=== PATIENT | male | born 1955 ===

== ENCOUNTER 2025-07-28 11:06 | Outpatient (AMB) | payer OTHER, SELFPAY ==
[2025-07-28 11:14] VITALS: BMI 27.4
--- NOTE | 2025-07-28 11:14 | A.PHYSOV ---
Vital Signs 07/28/25 11:14 Height 5 ft 8 in Weight 180 lb BMI 27.4 Intake Visit Reasons: eval for back injection Intake Note: Patient is a 70 year old male here today for a re-evaluation. Patient is having neck pain and would like to discuss another injection. 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 The patient has a history of pain that was successfully treated with a right C3-4, C4-5 facet injection in November, which provided greater than 50% reduction of his pain for over 6 months. The patient's pain, including chest pain, has gradually returned and is described as being the same as before the prior injection. The patient rates the current pain as a 6 or 7 out of 10, and it comes and goes. The patient also reports recent onset of finger numbness after a strenuous lifting incident involving a boiler. The patient reports having muscle relaxers at home, which sometimes provide help with the referred pain to the chest. The patient's work involves significant heavy lifting, including moving appliances and scrap metal, which the patient acknowledges causes strain. Patient is requesting repeat right C3-4, C4-5 facet injection. Pain Description - Onset and Timing: Pain has gradually recurred after a period of relief from an injection in November. - Location and Radiation: The pain is experienced in the chest, which is considered referred pain. - Quality and Character: The pain is intermittent and described as being the same as before the last injection. - Severity: Current pain is rated as a 6 or 7 out of 10. - Associated Symptoms: The patient reports numbness in the fingers after heavy lifting. - Exacerbating Factors: Heavy lifting, such as moving a boiler, has caused strain and is associated with new symptoms. - Relieving Factors: A prior right C3-4, C4-5 facet injection provided significant relief, and muscle relaxers sometimes help with referred pain. Procedure: Right C3-4, C4-5 facet injection 12/21/2024 50% reduction of his pain for 3 months. [facility] Surgical History History of back surgery Social History (Reviewed 07/28/25 @ 11:17 by MICKY Shipman Alcohol intake: current Alcohol intake frequency: holidays/special occasions only Patient Tobacco Use Status: Never used Tobacco Use of substances other than those prescribed or required for medical reasons: No Review of Systems Narrative Review of Systems - Neurological: Reports numbness in fingers after heavy lifting. - Musculoskeletal: Reports intermittent pain. - Cardiovascular: Reports chest pain, characterized as referred pain. Physical Exam Exam Exam: Physical Exam Cervical Spine: He is tender to the right cervical paraspinal musculature. He has limited range of motion of the cervical spine lateral rotation and flexion to the right. Patient does have pain with facet loading. Special Tests: Axial Compression test: Negative Spurlings test: Negative Lhermitte's sign is Negative Upper Extremities: Full range of motion bilateral upper extremities. 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 Neuro: Sensation: Intact to upper extremities bilateral to light touch Strength C5 (Elbow Flexion): 5/5 on the left and 5/5 on the right. C6 (Elbow Ext): 5/5 on the left and 5/5 on the right. C7 (Elbow Ext): 5/5 on the left and 5/5 on the right. C8 (Finger Flex): 5/5 on the left and 5/5 on the right. T1 (Finger Abd/Add): 5/5 on the left and 5/5 on the right. DTR: C5 (Biceps): Left 0 Right 0 C6 (Brachioradialis): Left 0 Right 0 C7 (Triceps): Left 0 Right 0 Mariee sign: Negative No pathologic clonus. No involuntary movement. Vital Signs: BMI result Body Mass Index 27.4 Assessment & Plan Assessment & Plan (1) Cervicalgia: Code(s): M54.2 - Cervicalgia Category: Medical (2) Cervical spondylosis: Code(s): M47.812 - Spondylosis without myelopathy or radiculopathy, cervical region Category: Medical Plan Pain Management - Analgesia: The patient reports a current pain level of 6-7/10. - A prior right C3-4, C4-5 facet injection in November was very helpful. - The patient uses muscle relaxers, which are sometimes helpful for referred chest pain. - Nron-kxf-pwhcsxp anti-inflammatories like ibuprofen, naproxen, Aleve, and Tylenol were suggested for current pain. - Activities of Daily Living: The patient engages in strenuous work that involves a lot of heavy lifting, such as moving appliances and scrap metal. Plan Patient was informed and verbally consented to the use of an ambient scribe for clinic note documentation during this visit. 1. Cervicalgia The patient presented with recurrent pain, including referred chest pain, which previously responded well to a right C3-4, C4-5 facet injection in November. Given the positive response to the previous procedure, a request for authorization will be submitted to the patient's insurance for a repeat right C3-4, C4-5 facet injection. For interim pain management, the use of kkus-kai-jqigule anti-inflammatories or the patient's existing muscle relaxers was recommended. The procedure will be scheduled with Dr. Arrieta upon insurance approval. 2. Paresthesia Of Fingers The patient reported a new onset of finger numbness after a recent instance of heavy lifting. This is likely secondary to strain from the patient's physically demanding work. Management for this will be addressed through the treatment of the primary cervical spine issue. Discussion Notes I discussed with the patient that the current symptoms are a recurrence of the condition that responded favorably to a previous facet injection. We will proceed with requesting authorization for a repeat right C3-4, C4-5 facet injection. I advised that for current pain, zare-lor-vamstrm anti-inflammatories, Tylenol, or the patient's existing muscle relaxers could be beneficial. I informed the patient that our office will contact them to schedule the procedure with Dr. Arrieta once insurance approval is obtained, and that a scheduled follow-up could be canceled if the patient's symptoms resolve after the injection. Patient Instructions - We will request approval from your insurance for a repeat neck injection (right C3-4, C4-5 facet injection) as this helped you before. - Our office will call you to schedule the procedure once it is approved. - For pain relief now, you can take elbb-led-wtuteni medications like ibuprofen, naproxen (Aleve), or Tylenol. - You may also use your prescribed muscle relaxers, which can help with the pain in your chest. - A follow-up appointment will be made, but you can call to cancel it if you feel better after the injection. Coding Level of Care Code Tele Est Pt Level 3 (13114) Diagnoses Cervicalgia M54.2 Cervical spondylosis M47.812
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
--- OUTSIDE RECORDS SUMMARY | 2025-07-28 13:14 | XMS_ITS | Clinical Summary ---
Author Organization [facility] Prior to 01/23/[address] [place] [address] Care Team Providers Care Custom Tailor Name Role Phone Basil Garcia MD Primary Care Provider [phone] Allergies No known active allergies Medications Medication Sig Dispensed Refills Start Date End Date Status hydroCHLOROthiazide (HYDRODIURIL) tablet 25 mg Take 25 mg by mouth daily. 0 Active predniSONE (DELTASONE) tablet 20 mg Take 40 mg by mouth daily. 0 Active cyclobenzaprine (FLEXERIL) 10 MG tablet Take 10 mg by mouth 2 (two) times a day as needed for muscle spasms. 0 Active docusate sodium (COLACE) 100 MG capsule Take 100 mg by mouth 2 (two) times a day. 0 Active ibuprofen (ADVIL,MOTRIN) 800 MG tablet Take 800 mg by mouth every 8 (eight) hours as needed for pain. 0 Active loratadine (CLARITIN) 10 MG tablet Take 10 mg by mouth daily. 0 Active traZODone (DESYREL) 100 MG tabletIndications:ivette es 1 and 1/2 tab Take 100 mg by mouth every night at bedtime. 0 Active amLODIPine (NORVASC) tablet 2.5 mg Take 2.5 mg by mouth daily. 0 Active sildenafil (VIAGRA) 50 MG tablet Take 50 mg by mouth daily as needed for erectile dysfunction. 0 Active Social History Tobacco Use Types Packs/Day Years Used Date Smoking Tobacco: Some Days Smokeless Tobacco: Never Comments:occasionally Alcohol Use Standard Drinks/Week Comments Yes 0 (1 standard drink = 0.6 oz pur e alcohol) occasionally Sex and Gender Information Value Date Recorded Sex Assigned at Not on file Gender Identity Not on file Sexual Orientation Not on file Last Filed Vital Signs Vital Sign Reading Time Taken Comments Blood Pressure 132/92 12/04/2018 2:52 PM EDT Pulse 88 12/04/2018 2:52 PM EDT Temperature 36.6 C (97.9 F) 12/04/2018 2:52 PM EDT Respiratory Rate - - Oxygen Saturation - - Inhaled Oxygen Concentration - - Weight 78.3 kg (172 lb 9.6 oz) 12/04/2018 2:52 P M EDT Height 172.7 cm (5' 8 ) 12/04/2018 2:52 PM EDT Body Mass Index 26.24 12/04/2018 2:52 PM EDT Plan of Treatment Health Maintenance Due Date Last Done Comments Hepatitis C Screening 1957 COVID-19 Vaccine (#1) 1957 Pneumococcal Vaccine (1 of 2 - PCV) 1963 Depression Screening 1969 Preventative Health Evaluation 1975 Colon Cancer Screening (Colonoscopy) 2002 Shingrix-Zoster Vaccine (1 o f 2) 2007 Fall Risk Assessment 2022 Influenza Vaccine (#1) 2025 7, 05/31/2014 DTap / Tdap / Td (2 - Td or Tdap) 06/26/2028 06/26/2018 RSV Adult > 60+ Yrs or (1 - 1-dose 75+ series) 2032 Hepatitis B Vaccines Aged Out No long er eligible based on patient's age to complete this topic RSV Ped < 20 months Aged Out No longe r eligible based on patient's age to complete this topic Care Teams Custom Tailor Relationship Specialty Start Date End Date Basil Garcia MD PCP - General Internal Medicine 11/29/20
--- OUTSIDE RECORDS SUMMARY | 2025-07-28 13:14 | XMS_ITS ---
Author Name [facility] Organization Unknown Care Team Organization Name Specialty Phone Email Start Date End Da te [facility] Basil Garcia Primary Care 07/03/2022 04/13/20 24
--- OUTSIDE RECORDS SUMMARY | 2025-07-28 13:14 | XMS_ITS | Clinical Summary ---
Author Organization [facility] Address [address] [address] Phone Care Team Providers Care Coding Specialist Home Health Name Role Phone Basil Garcia MD Primary Care Provider + Medications sildenafiL (VIAGRA) 100 mg tablet Take 1 tablet (100 mg total) by mouth daily as needed (PRN). 20 tablet 3 11/04/2024 Active Active Problems Problem Noted Date Diagnosed Date Screening for prostate cancer 11/10/2024 Erectile dysfunction 11/10/2024 Peyronie's disease 11/10/2024 Social History Tobacco Use Types Packs/Day Years Used Date Smoking Tobacco: Never Assessed Education Answer Date Recorded Are you interested in more education? Not on renuka e 10/22/2024 Are you concerned about learning? Not on file 10/22/2024 No 10/22/2024 No 10/22/2024 Digital Access Answer Date Recorded No 10/22/2024 No 10/22/2024 Reliable internet access at home? Not on file 10/22/2024 Device with a working camera? Not on file Sex and Gender Information Value Date Recorded Sex Assigned at Male 10/22/2024 3:59 PM EST Legal Sex Male 7:32 PM EST Gender Identity Male 10/22/2024 3:59 PM EST Sexual Orientation Straight 10/22/2024 3: 59 PM EST Plan of Treatment Health Maintenance Due Date Last Done Comments Adult Td,Tdap Booster 1957 DEPRESSION SCREENING 1969 SMOKING Hx and SMOKELESS TOB ACCO SCREENING 1970 HEPATITIS C SCREENING 1975 COLOGUARD 2002 COLONOSCOPY 2002 COLORECTAL CANCER SCREENING 2002 FIT TEST 2002 FOBT 2002 SIGMOIDOSCOPY 2002 VIRTUAL COLONOSCOPY 2002 PNEUMOCOCCAL VACCINES (50+ y ears) (1 of 1 - PCV) 2007 ZOSTER VACCINES (1 of 2) 2007 INFLUENZA VACCINE (#1) 2025 COVID-19 VACCINE (1 - 2024-2 6 season) 2025 LIPID PANEL 10/07/2028 10/07/2023 RSV VACCINE (1 - 1-dose 75+ series) 2032 HEPATITIS A VACCINES Aged Out No long er eligible based on patient's age to complete this topic HIB VACCINES Aged Out No longer eligi ble based on patient's age to complete this topic MENINGOCOCCAL VACCINES (ACWY) Aged Out No longer eligible based on patient's age to complete this topic MENINGOCOCCAL VACCINES (B) Aged Out N o longer eligible based on patient's age to complete this topic Medical Devices Not on file Insurance O MEDICARE REPLACEMENT [employer] [facility] MEDICARE PART A & B MEDICARE REPLACEMENT MEDICARE PART A & B MEDICARE REPLACEMENT MEDICARE PART A & B MEDICARE REPLACEMENT Member Subscriber Plan / Payer (Ef fective 2022-) Name:Slick Bell Relation to Subscriber:Self Name:Slick Bell Payer ID:[id number] (NAIC) Group ID:[id number] Type:Medicare Address: [address] [facility] [address] [facility] MEDICARE PART A & [place] [address] [place] [address] MEDICARE REPLACEMENT MEDICARE PART A & B [employer] MEDICARE REPLACEMENT MEDICARE PART A & B Care Teams Coding Specialist Home Health Relationship Specialty Start Date End Date Basil Garcia MD [address] [place] [phone] PCP - General Internal Medicine 10/22/24 Additional Source Comments The information contained in this document represents components of the legal health record. It is not the complete legal health record.[facility]
--- OUTSIDE RECORDS SUMMARY | 2025-07-28 13:14 | XMS_ITS | Data Portability ---
Author Organization [facility] Sebastien Gomez [facility], [facility] Address [address] [place] [address] Care Team Providers Care Advisory Internship Name Role Phone YESENIA LOPES Primary Care Provider [phone] Assessment Encounter Date Assessment Date Assessment LastModified by Organization Details LastModified Time 02/07/2024 02/07/2024 68-year-old man status post cervical decompressive laminoplasty years ago. Has some hand numbness most consistent with carpal tunnel syndrome today. Will order an EMG to evaluate. Otherwise doing well. X-ray looks good. Follow-up to be arranged thereafter [email or web address] Not available 02/07/2024 14:49:22 Plan of Treatment Reminders Order Date Submit Date Provider Last Modified By Organization Details Last Modified Time Details Appointments None recorded. Lab None recorded. Referral None recorded. Procedures nerve conduction study/EMG, upper extremity (PROC) - bilateral upper ext emg r/o cts bi latera upper ext numbness and tingling 2023 024 [email or web address] [facility] ([facility]), [address] [facility] [address], [address], 4 12:38:08 Surgeries None recorded. Imaging XR, cervical spine, 2 or 3 view - 2v c/s room 319 2023 024 [email or web address], [address] [facility] [address], [place], [address], 4 17:11:33 Medication Orders None recorded. Patient TargetsNo targets recorded. Patient InstructionsNo instructions recorded. Reason for Referral None Reported. Results Created Date Observation Date Name Description Value Unit Range Abnormal Flag Note LastModifiedBy Organization Detail LastModifiedTime 01/06/20 24 12/16/2023 XR, shoul vinny, 2 or more view No observ ation record ed. BARCODE Not Available 2023 09:40:01 02/07/20 24 02/07/2024 XR, cervi unruly spine , 2 or 3 view [email or web address] ?Encry pted=s hAaTro YD8dLq bEUv6g %2BXZw aYqtaq 0bqfl% 2Fg9IQ a4ajBk vP9nXo QUaueC m3YtLR FvZlgJ JJ8mAn HZtai3 9i5384 AC0Kub 3uDVKv eUC8mr 84%3D INTERFACE [facility] [address], [place], [address], 02/07/2024 14:32:15 02/07/20 24 02/07/2024 XR, cervi unruly spine , 2 or 3 view [email or web address] ?Encry pted=s hAaTro YD8dLq bEUv6g %2BXZw aYqtaq 0bqfl% 2Fg9IQ a4ajBk vP9nXo QUaueC m3YtLR FvZlgJ JJ8mAn HZtai3 0d8420 AC0Kub 3uDVKv eUC8mr 84%3D INTERFACE [facility] [address], [place], [address], 02/07/2024 14:32:17 Result Notes Documentation Provider Name and Address Organization Details Recorded Time Xr, Cervical Spine, 2 Or 3 View : [email or web address] Encrypted=apIkIaoXM8kZiyP Uv6g%6PQEcvZmzpb5tmpc%2Fg 1WOl0zeHubM2eUcHNmkvXh1Or CYLeSuxBUJ4uPxJFjbj59y375 7HT9Cog9tETDhtQL5lg32%3D Not Available [employer] 02/07/2024 14:3 2:16 Xr, Cervical Spine, 2 Or 3 View : [email or web address] Encrypted=acKvRrkYD0gFeoH Uv6g%8UJJklFewsa4uemy%2Fg 2HSr3fhNfxU9jJgDPjlkKo1Df XVZwIqtBCK9hLtWIbsp18i056 9PW1Ohk1gLPLjsHZ7be92%3D Not Available [facility] 02/07/2024 14:3 2:18 Procedures Surgical History Date Name Laterality Status Provider Name and Address Organization Details Recorded Time 4 Sports Shoulder completed Anabella James MD [address], [address], [facility] 07/06/2024 14:55:52 4 Sports Shoulder completed Anabella James MD [address], [address], [facility] 01/06/2024 08:33:28 Imaging Results None recorded. Procedure Notes None recorded. Medical Equipment None Reported. Allergies No known drug allergies Medications Name Sig Start Date Stop Date Status Note LastModified by Organization Details LastModified Time celecoxib 200 mg capsule TAKE 1 CAPSULE (200 MG TOTAL) BY MOUTH TWICE A DAY WITH MEALS active Not Available Not Available No t Available cyclobenzap rine 10 mg tablet TAKE 1 TABLET BY MOUTH 2 TIMES A DAY IF NEEDED FOR MUSCLE SPASMS. active Not Available Not Available No t Available amoxicillin 500 mg capsule TAKE 1 CAPSULE BY MOUTH EVERY 8 HOURS UNTIL FINISHED active Not Available Not Available No t Available latanoprost 0.005 % eye drops INSTILL 1 DROP INTO AFFECTED EYE(S) BY OPHTHALMI C ROUTE ONCE DAILY INTHE EVENING active Not Available Not Available No t Available prednisone 10 mg tablet TAKE 4 TABS X 2DAYS, 3 TABS X 2D, 2 TAB X 2D. FIRST DOSE NOW, THEN IN AM DAILY. TAKE W/FOOD active Not Available Not Available No t Available cetirizine 10 mg tablet TAKE 1 TABLET BY MOUTH 1 TIME EACH DAY. active Not Available Not Available No t Available azithromyci n 250 mg tablet TAKE 2 TABLETS ON DAY 1 THEN 1 TABLET DAILY. 07/06 completed Not Available Not Available Not Available ibuprofen 800 mg tablet TAKE ONE TABLET NEEDED EVERY 4 TO 6 HOURS NEEDED FOR PAIN active Not Available Not Available No t Available tizanidine 4 mg tablet TAKE 1 TABLET BY MOUTH THREE TIMES A DAY FOR 30 DAYS active Not Available Not Available No t Available benzonatate 200 mg capsule TAKE 1 CAPSULE BY MOUTH 3 TIMES A DAY IF NEEDED FOR COUGH. DO NOT CRUSH OR CHEW. active Not Available Not Available No t Available ibuprofen 200 mg capsule Take 1 capsule every 6 hours by oral route. active Not Available Not Available No t Available betamethaso ne, augmented 0.05 % topical cream APPLY THIN LAYER TOPICALLY TO ITCHY RASH AREAS AND RUB IN GENTLY THREE TIMES DAILY FOR 10 DAYS. WASH HANDS AFTER USE. DO NOT APPLY TO FACE. 01/05 completed Not Available Not Available Not Available amlodipine 2.5 mg tablet TAKE 1 TABLET BY MOUTH 1 TIME EACH DAY. active Not Available Not Available No t Available tramadol 50 mg tablet TAKE 1 TABLET BY MOUTH EVERY 6 HOURS FOR 5 DAYS NEEDED FOR SEVERE PAIN active Not Available Not Available No t Available sildenafil 100 mg tablet TAKE 1 TABLET (100 MG TOTAL) BY MOUTH DAILY NEEDED active Not Available Not Available No t Available terbinafine HCl 250 mg tablet TAKE 1 TABLET BY MOUTH EVERY DAY 01/05 completed Not Available Not Available Not Available trazodone 100 mg tablet TAKE 1 AND 1/2 TABLET BY MOUTH EVERY NIGHT AT BEDTIME active Not Available Not Available No t Available benzonatate 100 mg capsule TAKE 1 CAPSULE BY MOUTH 3 TIMES DAILY NEEDED FOR COUGH FOR UP TO 7 DAYS. active Not Available Not Available No t Available gabapentin 300 mg capsule PLEASE SEE ATTACHED FOR DETAILED DIRECTION S active Not Available Not Available No t Available hydrochloro thiazide 25 mg tablet TAKE 1 TABLET BY MOUTH 1 TIME EACH DAY. active Not Available Not Available No t Available methylpredn isolone 4 mg tablets in a dose pack TAKE 6 TABLETS ON DAY 1 DIRECTED ON PACKAGE AND DECREASE BY 1 TAB EACH DAY FOR A TOTAL OF 6 DAYS active Not Available Not Available No t Available albuterol sulfate HFA 90 mcg/actuati on aerosol inhaler INHALE 2 PUFFS INTO THE LUNGS 4 TIMES A DAY, NEEDED FOR WHEEZING active Not Available Not Available No t Available fluticasone propionate 50 mcg/actuati on nasal spray,suspe nsion TAKE 1 SPRAYS (INTRANAS AL) 2 TIMES PER DAY FOR 30 DAYS active Not Available Not Available No t Available naproxen 500 mg tablet TAKE 1 TABLET BY MOUTH TWICE A DAY WITH MEALS active Not Available Not Available No t Available amoxicillin 875 mg-potassiu m clavulanate 125 mg tablet TAKE 1 TABLET BY MOUTH TWICE A DAY FOR 7 DAYS active Not Available Not Available No t Available naproxen 01/05 completed Not Available Not Available Not Available Lumigan 01/05 completed Not Available Not Available Not Available diclofenac 1 % topical gel APPLY 2 G TOPICALLY 2 (TWO) TIMES A DAY IF NEEDED (PAIN). active Not Available Not Available No t Available oxycodone HCl-oxycodo ne-ASA for pain 11/24 completed Statu s: 'Disc ontin ued'; Not Available Not Available Not Available Lumigan 0.01 % eye drops INSTILL 1 DROP INTO BOTH EYES EVERY DAY AT NIGHT active Not Available Not Available No t Available COVID-19 At-Home Test kit TEST DIRECTED TODAY 07/06 completed Not Available Not Available Not Available Vitals Date Recorded Body height Body mass index (BMI) Body weight Provider Name and Address Organization Details Last Updated DateTime 01/06/2024 172.72 cm 26.6 kg/m2 45081.66 g CITLALI SANTO [facility] 01/06/2024 08:07:08 Date Recorded Body height Body mass index (BMI) Body weight Provider Name and Address Organization Details Last Updated DateTime 02/07/2024 172.72 cm 27.4 kg/m2 46501.63 g MEHDI CLAYTON [facility] 02/07/2024 14:25:29 Date Recorded Body height Body mass index (BMI) Body weight Provider Name and Address Organization Details Last Updated DateTime 07/06/2024 172.72 cm 27.4 kg/m2 70934.63 g CITLALI SANTO [facility] 07/06/2024 14:26:21 Social History None recorded. Functional Status None recorded. Mental Status None recorded. Family History Nothing Reported. Medical History Condition Response Allergies/Hayfever N Coronary Artery Disease N Breathing or lung disorders N Anxiety/Depression N Emphysema N Nerve Disorders N Thyroid Problems N COPD N Pacemaker N Kidney/Bladder Problems N Anemia N Vascular Disease N Heart Trouble N Heart Attack ([place]) N Gastrointestinal Disease N Cholesterol N Diabetes N Autoimmune disease N Inflammatory Joint disease N Bleeding Disorder N Orthotics N Seizures/Epilepsy N Arthritis Y Blood Clot N AIDS/HIV N Congestive Heart Failure (CHF) N Acid Reflux (GERD) N Cancer N Stroke N Asthma N Circulation Problems N Peripheral Vascular Disease N Sleep Apnea N Hepatitis N Heart Disease N Rheumatoid Arthritis N Pulmonary Embolism N Arrhythmia N Headaches N Fibromyalgia N Hypertension Y Osteoporosis N Past Encounters Encounter ID Performer Location Encounter Start Date Encounter Closed Date Diagnosis/Indication Diagnosis SNOMED-CT Code Diagnosis ICD10 Code Diagnosis IMO Codes Diagnosis Note [id number] MD [facility] [address] [place] [address] 01/06/2024 07:59:25 01/16/2024 13:41:33 Full thickness rotator cuff tear 487285618 M75.954 [id number] Mathieu Lacey MD [place] [address] [place] [address] 02/07/2024 14:09:37 03/12/2024 17:11:33 Cervical radiculopathy 70340876 M54.12 Pain of bi lateral hands 2844094481 [id number] M79.114 [id number] MD [facility] [address] [place] [address] 07/06/2024 13:41:42 08/04/2024 14:28:36 Nontraumatic complete rupture of rotator cuff of right shoulder 7574779727 105790 M75.121 [id number] Health Concerns Section Related Observation LastModified by Organization Detai ls LastModified Time None Recorded Concern Status LastModified by Organization Details LastModified Time None Recorded Advance Directives Directive None Recorded Payers Insurance Date Sequence Insurance Name Policy Number Policy Matute Covered Member ID Matute Member ID Guarantor Name 05/03/2025 1 [facility] - DOS ON OR AFTER 2022 - ONE CARE (MEDICARE REPLACEMENT/ADV ANTAGE - HMO) Slick Bell [id number] Slick Bell 04/23/2024 1 UNSPECIFIED REMIT PAYOR Slick Bell Notes Date Note Type Note Provider Name and Address Organization Details Recorded Time 01/06/2024 text/html Issue:- Right shoulder glenohumeral arthritis, chronic anterior-superior rotator cuff tear- Left shoulder chronic rotator cuff disease, chronic grade 3 AC separation, traumatic dislocation 08/2023.Interval History: This is a 68-year-old gentleman with remote history of cervical laminoplasty who has developed gradually progressive right shoulder pain after a series of falls.His exam has been consistent withs uspected chronic rotator cuff tears, bilaterally. Did have a traumatic dislocation of the left shoulder resulting from an alcohol-related fall in August. He went through a course of physical therapy for the left shoulder and notes that the left side is doing reasonably well. Had a cortisone injection for his right shoulder 09/03/2023 and notes increased pain in the shoulder since then. Difficulty raising the arm. More uncomfortable at nighttime with sleeping. Aware of chronic crepitus. He takes naproxen for widespread pain, maybe helps the shoulder.Past family, medical, social history and review of systems has been reviewed, updated and signed by me and is located in the patient s chart.Examination: Pleasant 68-year-old gentleman in no acute distress. On exam of the right upper extremity, skin over the shoulder is intact. No deformity noted. Tender to palpation at the a.c. joint as well as subacromial space. Active forward elevation to 90, passively 170 with pain. Subacromial crepitus noted with passive forward elevation. Positive Neer, positive Conde. Passive external rotation to 75 with negative ER lag. Internal rotation back pocket. 4/5 strength with scaption and ER, both painful. 5-/5 with IR, less painful but has a positive (painful and weak) bearhug maneuver. Positive speed's, negative Yergason's. Negative cross body adduction. Sensation intact in an axillary distribution. Fires EPL, FPL and intrinsics. Hand is warm and well-perfused.Left shoulder is notable for deformity at the a.c. joint with prominent distal clavicle. Some crepitus here with range of motion of the shoulder. Active forward elevation 150, negative Neer and Conde. Passive external rotation 80 with negative ER lag. Mild discomfort with cross body adduction. 4-/5 strength with scaption and ER, 5/5 with IR. Less pain with these manipulations than on the contralateral side. Mildly positive speed, negative Yergason's. Sensation intact in axillary distribution. Fires EPL, FPL and intrinsics. Hand is warm and well perfused.Negative Tinel's at cubital tunnel, but positive elbow flexion compression test bilaterally.Imagin views of the right shoulder 12/16/2023 performed at [facility] independently reviewed by me on [facility]IS during the visit. These demonstrate eccentric narrowing of the superior glenohumeral joint. No ruben proximal migration humeral head. Humeral head centered on axillary view. Moderate AC arthrosis. Flecks of calcium adjacent to the greater and lesser tuberosities seen best on axillary view.Left shoulder x-rays ordered and obtained 07/03/2019 were reviewed during the visit. These demonstrate inferior displacement of the acromion relative to the distal clavicle. A.c. arthropathy suggesting long-standing situation. No ruben proximal migration humeral head. Mild narrowing glenohumeral joint space. Type II acromion with some calcification of the CA ligament noted. Humeral head centered on the glenoid on axillary view.Impression: 68-year-old gentleman with suspected bilateral chronic rotator cuff tears, left chronic grade 3 AC separation, and recent left shoulder dislocation. Right shoulder most symptomatic at this point, with exam suggestive of extension of previous tear into the anterior cuff, resulting in some decompensation. Patient continutes to struggle with frequent falls, such that I have concerns about pursuing major reconstructive surgery.Plan: Will continue with intermittent cortisone injection for the shoulders. Interested in the right shoulder today. Will call for left shoulder injection in the future as needed. Follow-up as needed for bilateral shoulders. Anabella James MD [facility] [address], [place], [address], [facility] 01/06/2024 08:34:13 02/07/2024 text/html ROS as noted in the HPI HPI: 68-year-old man followed for cervical stenosis status post laminoplasty years ago. Has some numbness in his hands but overall is doing reasonably well. Had a fall and a shoulder fracture about 2 months ago which was a setback. No gait deterioration or bowel or bladder complaints. WORK STATUS: Not working PFMSH and ROS has been reviewed, updated, and is located in the patient's chart RADIOGRAPHS: Cervical spine radiographs show centerline implants in excellent position and alignment. Diffuse arthrosis PHYSICAL EXAMINATION: Mathieu Lacey MD [address] [facility] [address], [place], [address], [facility] 02/07/2024 14:49:41 07/06/2024 text/html Issue:- Right shoulder glenohumeral arthritis, chronic anterior-superior rotator cuff tear- Left shoulder chronic rotator cuff disease, chronic grade 3 AC separation, traumatic dislocation 08/2023.Interval History: This is a 68-year-old gentleman with remote history of cervical laminoplasty who has developed gradually progressive right shoulder pain after a series of falls.His exam has been consistent with suspected chronic rotator cuff tears, bilaterally. Did have a traumatic dislocation of the left shoulder resulting from an alcohol-related fall in August 2022. He went through a course of physical therapy for the left shoulder and notes that the left side is doing reasonably well. We have been managing the right shoulder with cortisone injections, most recently 01/06/2024. Since I saw him last, he sustained a new injury to the right shoulder when he felt a sudden pain while trying to lift a heavy roll of copper wiring. Aware of bruising in the arm as well as a new deformity over the right biceps muscle since then. . Difficulty raising the arm. More uncomfortable at nighttime with sleeping. Aware of chronic crepitus. He takes naproxen for widespread pain, maybe helps the shoulder. Since his most recent injury has also been taking Tramadol, which helps somewhat.Past family, medical, social history and review of systems has been reviewed, updated and signed by me and is located in the patient s chart.Examination: Pleasant 68-year-old gentleman in no acute distress. On exam of the right upper extremity, skin over the shoulder is intact. No deformity noted. Tender to palpation at the a.c. joint as well as subacromial space. No definite Marques deformity. Active forward elevation to 160, passively 170 with pain. Subacromial crepitus noted with passive forward elevation. Positive Neer, positive Conde. Passive external rotation to 75 with negative ER lag. Internal rotation back pocket. 4/5 strength with scaption and ER, both painful. 5-/5 with IR, less painful but has a positive (painful and weak) bearhug maneuver. Positive speed's, negative Yergason's. Negative cross body adduction. Sensation intact in an axillary distribution. Fires EPL, FPL and intrinsics. Hand is warm and well-perfused.Left shoulder is notable for deformity at the a.c. joint with prominent distal clavicle. Some crepitus here with range of motion of the shoulder. Active forward elevation 150, negative Neer and Conde. Passive external rotation 80 with negative ER lag. Mild discomfort with cross body adduction. 4-/5 strength with scaption and ER, 5/5 with IR. Less pain with these manipulations than on the contralateral side. Mildly positive speed, negative Yergason's. Sensation intact in axillary distribution. Fires EPL, FPL and intrinsics. Hand is warm and well perfused.Negative Tinel's at cubital tunnel, but positive elbow flexion compression test bilaterally.Imagin views of the right shoulder 12/16/2023 performed at [facility] independently reviewed by me on CIS during the visit. These demonstrate eccentric narrowing of the superior glenohumeral joint. No ruben proximal migration humeral head. Humeral head centered on axillary view. Moderate AC arthrosis. Flecks of calcium adjacent to the greater and lesser tuberosities seen best on axillary view.Left shoulder x-rays ordered and obtained 07/03/2019 were reviewed during the visit. These demonstrate inferior displacement of the acromion relative to the distal clavicle. A.c. arthropathy suggesting long-standing situation. No ruben proximal migration humeral head. Mild narrowing glenohumeral joint space. Type II acromion with some calcification of the CA ligament noted. Humeral head centered on the glenoid on axillary view.Impression: 68-year-old gentleman with suspected bilateral chronic rotator cuff tears, left chronic grade 3 AC separation, and recent left shoulder dislocation. Right shoulder most symptomatic at this point, with exam suggestive of extension of previous anterior superior cuff tear and possible long head biceps tendon rupture.Plan: Discussed that definitive management of his right shoulder would ential a reverse total shoulder arthroplasty to address both arthritis and rotator cuff tear. Short of surgery, we can continue to manage symptoms with cortisone injection. That would be his preference for now for this acute, traumatic exacerbation of his pain. Anabella James MD [address] [facility] [address], [place], [address], [facility] 07/06/2024 14:56:18
== END 2025-07-28 11:42 | disposition home or self-care (01) ==
LOC: HO.HPHYS 11:06
PROVIDERS: PCP Internal Medicine; Visit Provider Physician Assistant
DX: M54.2 Cervicalgia (principal); M47.812 Spondylosis without myelopathy or radiculopathy, cervical region
CPT/HCPCS: 99213

== ENCOUNTER → 2025-07-28 11:06 | Outpatient (BNVA) | payer OTHER, SELFPAY | PROVIDERS: PCP Internal Medicine; Visit Provider Physician Assistant | DX: M47.812 Spondylosis without myelopathy or radiculopathy, cervical region (principal); M54.2 Cervicalgia; R20.2 Paresthesia of skin; R20.0 Anesthesia of skin | CPT/HCPCS: 99212 ==